=== PATIENT | male | born 1995 | race Caucasian/White ===

== ENCOUNTER 2016-12-23 18:42 | Emergency (ER) | payer SELFPAY ==
[2016-12-23] MEDS ORDERED: HYDROCODONE/ACETAMINOPHEN 5-325 MG TABLET PO ONE (19:43)
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
[2016-12-23] MEDS ORDERED: HYDROCODONE/ACETAMINOPHEN 5-325 MG 6 TAB/DSPK PO PRN (20:33)
[2016-12-23 21:14] VITALS: BP 125/72
== END 2016-12-23 21:14 | disposition home or self-care (01) ==
LOC: ER 18:42
DX: S20.229A Contusion of unspecified back wall of thorax, initial encounter (principal); R07.81 Pleurodynia; Y04.8XXA Assault by other bodily force, initial encounter; Y93.72 Activity, wrestling; Y92.009 Unspecified place in unspecified non-institutional (private) residence as the place of occurrence of the external cause; F17.210 Nicotine dependence, cigarettes, uncomplicated; Z71.6 Tobacco abuse counseling; Z87.09 Personal history of other diseases of the respiratory system
CPT/HCPCS: 71111; 99283